=== PATIENT | female | born 1995 | race Caucasian/White ===

== ENCOUNTER 2020-06-14 07:50 | Outpatient (REF) | payer OTHER, SELFPAY ==
--- NOTE | 2020-06-14 12:39 | MHC.AU.P13 ---
Adult Audiological Evaluation Date of Visit: 06/14/20 Manager Bilingual Used: Not Applicable Reason for Appointment: Audiologic evaluation due to increasing hearing difficulties. Kristina was diagnosed with bilateral hearing loss at approximately the age of 3. Her current hearing aids are at least 10 years old and she needs new hearing aids. Previous Hearing Test Results: Andrew Rivas [facility] - Results are not available for review Ear History: Family History of Hearing Loss?: Yes: Grandmother Ear Infections in Childhood: Both Ears Medical History: Medical History: Headache and Tobacco Use Medication List: None Hearing Instrument History- Right Ear: Senior Engineering Associate: Oticon Model: Tego BTE Serial Number: [id number] Battery Size: 13 Dispensed By: Andrew Rivas Date of Fitting: Unknown Hearing Instrument History- Left Ear: Senior Engineering Associate: Oticon Model: Tego BTE Serial Number: [id number] Battery Size: 13 Dispensed By: Andrew Rivas Date of Fitting: Unknown Otoscopy: Right Ear: Unremarkable Left Ear: Unremarkable Tympanometry: Tympanometry performed due to: To assess integrity of the middle ear system Right Ear: Normal Middle Ear System (Type A) Left Ear: Normal Middle Ear System (Type A) Hearing Evaluation: Transducer(s) Used: Insert Earphones Bone Conduction Method: Conventional Audiometry Stimuli Used: Pure Tones Right Ear: Description of Hearing: Moderately-severe to severe sensorineural hearing loss Left Ear: Description of Hearing: Moderately-severe to severe sensorineural hearing loss Speech Recognition Threshold (SRT): Method Used: Monitored Live Voice Stimuli Used: Spondee Words Right Ear: 60 dB HL Left Ear: 60 dB HL Word Discrimination: Method: Recorded Lists Word Lists Used: NU-6 Right Ear: 64% at 90 dB HL 56% at 95 dB HL Left Ear: 68% at 90 dB HL 68% at 95 dB HL Most Comfortable Level (MCL): Right Ear: 90 dB HL Left Ear: 90 dB HL Comparison: Compared to the most recent evaluation: N/A Recommendations: Audiological re-evaluation in one year. Trial with amplification is recommended. Medical clearance from a physician is required before fitting. Patient plans to contact [facility]. - If eligible for [facility] ([facility]) services and/or would like to pursue hearing aids through [facility], Kristina is advised to schedule a Hearing Aid Fitting appointment. - If NOT eligible for [facility] services, recommend Kristina contact her medical insurance company to determine if she has a hearing aid benefit and proceed to obtain new hearing aids with a provider covered by her insurance. Diagnosis: Primary Diagnosis: H90.3 Bilateral Sensorineural Hearing Loss Services Performed: Comprehensive Audiological Evaluation (CPT 68783) Tympanometry (CPT 36328) Signature: Provider: Rhona Sherman, CCC-A
== END 2020-06-14 07:51 | disposition home or self-care (01) ==
LOC: HO.SH 07:50
PROVIDERS: PCP Nurse Practitioner Family; Visit Provider Nurse Practitioner Family
DX: H90.3 Sensorineural hearing loss, bilateral (principal)
CPT/HCPCS: 92557; 92567

== ENCOUNTER 2021-11-29 08:26 | Outpatient (REF) | payer SELFPAY ==
--- NOTE | 2021-11-29 09:01 | MHC.AU.HFU ---
Hearing Instrument Follow-Up- Binaural Date of Visit: 11/29/21 Right Ear: Protein Scientist: Oticon Model: Tego BTE Serial Number: [id number] Battery Size: 13 Dispensed By: Andrew Rivas Date of Fitting: Unknown Left Ear: Protein Scientist: Oticon Model: Tego BTE Serial Number: [id number] Battery Size: 13 Dispensed By: Andrew Rivas Date of Fitting: Unknown Follow-Up Summary: Patient brought in left aid with earhook broken. Repalced earhook and changed tubing with patient reporting good fit and sound quality. Patient will contact PCP to have order faxed for new hearing test and start process for new hearing aids. Diagnosis Code(s): Primary Diagnosis: H90.3 Bilateral Sensorineural Hearing Loss Services Performed: FRANCO Non-Quantity Charges: [facility] Charge ([id number]) Signature: Provider: Adela Sherman, MICHELLE-A
== END 2021-11-29 08:27 | disposition home or self-care (01) ==
LOC: HO.HAP 08:26
PROVIDERS: Visit Provider Nurse Practitioner Family
DX: Z46.1 Encounter for fitting and adjustment of hearing aid (principal); H90.3 Sensorineural hearing loss, bilateral
CPT/HCPCS: 99499

== ENCOUNTER 2021-12-22 12:58 | Outpatient (REF) | payer OTHER, SELFPAY | END 2021-12-22 12:59 | disposition home or self-care (01) | LOC: HO.SH 12:58 | PROVIDERS: Visit Provider Nurse Practitioner Family | DX: Z01.118 Encounter for examination of ears and hearing with other abnormal findings (principal); H90.3 Sensorineural hearing loss, bilateral | CPT/HCPCS: 92557 ==

== ENCOUNTER 2022-03-06 14:00 | Outpatient (REF) | payer SELFPAY ==
--- NOTE | 2022-03-06 16:45 | MHC.AU.HA1 ---
Hearing Aid Evaluation Date of Visit: 03/06/22 Historical Information:Description of Hearing: Moderately-severe to severe sensorineural hearing loss, bilaterally Current personal amplification information: Oticon Tego [id number] hearing aids purchased over 12 years ago Summary: Dagoberto hearing loss was diagnosed around [age] years old. She has reportedly been a consistent hearing aid user. She is ready to upgrade her hearing aid technology due to the age of her current pair. Kristina would prefer to stay with the same coverage specialist as well as the same style of hearing aid and ear mold. Hearing Aid Prescription: Based on the individual?s shared listening needs, communication environments, dexterity, desire for connectivity, and personal preferences, the following prescription for amplification has been made: Right ear: Make, Model, Color: Oticon Xceed 1 BTE SP Color: Velvet Black Battery Size: 13 Type of Earmold/Dome/CShell/SlimTip: Microsonic M45 Skeleton - Clear with multicolor glitter Left ear: Left ear prescription to be same as Right Hearing Aid above: Make, Model, Color: Oticon Xceed 1 BTE SP Color: Velvet Black Battery Size: 13 Type of Earmold/Dome/CShell/SlimTip: Microsonic M45 Skeleton - Clear with multicolor glitter Plan of Care: Patient wishes to purchase hearing aids as prescribed Action Taken/Action Needed: Earmold Impressions Taken. Medical Clearance to be requested from PCP/ENT Comments: [facility] Did not have a purchase order from [facility] for today's hearing aid consultation appointment. Called and left a voicemail for Daria Rivera at [facility]. Kristina opted to move forward with the appointment and knows if [facility] does not receive the purchase order from [facility], she is responsible for the $350.00 fee for today's appointment. A quote for hearing aids and ear molds will be sent to [facility], pending medical clearance. All materials will be order after receiving approval for the new hearing aids and ear molds from [facility]. Primary Diagnosis: H90.3 Bilateral Sensorineural Hearing Loss Signature: Provider: Juana Sosa, [facility]
--- NOTE | 2022-03-06 16:46 | MHC.AU.MED ---
Medical Clearance for Hearing Instrumentation Date: 03/06/22 Patient Name: Kristina Cash Date of : 1995 Primary Care Provider: ARTHUR Frazier We have seen your patient on 03/06/22 and have determined that they are a candidate for amplification (See accompanying report). Specifically, they would benefit from: Hearing aid use in both ears There is a statute that addresses Medical Evaluation Requirements prior to fitting a patient with a hearing aid. According to [place] statute 265 CMR:6.03(1), (a) General. Except as provided in 265 CMR 6.03(1)(b), a profiler shall not sell a hearing aid unless the prospective user has presented to the profiler a written statement signed by a licensed physician that states that the patient's hearing loss has been medically evaluated and the patient may be considered a candidate for a hearing aid. The medical evaluation must have taken place within the preceding six months. Please note: Due to the [place] Statute referenced above, we cannot accept a signature other than that of a licensed physician. MANUFACTURING PRODUCTION TECHNICIAN and PA signatures cannot be accepted. I am in agreement with the above recommendation. There is no medical contraindication for hearing instrumentation. Physician Signature Date Physician Name (Printed)
== END 2022-03-06 14:01 | disposition home or self-care (01) ==
LOC: HO.HAP 14:00
PROVIDERS: Visit Provider Nurse Practitioner Family
DX: Z46.1 Encounter for fitting and adjustment of hearing aid (principal); H90.3 Sensorineural hearing loss, bilateral
CPT/HCPCS: 92590

== ENCOUNTER 2022-06-07 14:06 | Outpatient (REF) | payer SELFPAY ==
--- NOTE | 2022-06-07 15:57 | MHC.AU.HA3 ---
Hearing Instrument Follow-Up- Binaural Date of Visit: 06/07/22 Right Ear: Make, Model, Color, Serial Number: Oticon Xceed 2 BTE UP SN: [id number] Color: Velvet Black Inspector Assembly Repair Warranty: 06/15/2025 Inspector Assembly Loss and Damage Warranty: 06/15/2025 [facility] Service Plan: 06/03/2023 Battery Size: 675 Earmold/Dome/CShell/SlimTip:Microsonic M45 Skeleton - Clear with multicolor glitter, small vent Dispensed By: [facility] Date of Fittin06/02/2022 Left Ear: Make, Model, Color, Serial Number: Oticon Xceed 2 BTE UP SN: [id number] Color: Velvet Black Inspector Assembly Repair Warranty: 06/15/2025 Inspector Assembly Loss and Damage Warranty: 06/15/2025 [facility] Service Plan: 06/02/2022 Battery Size: 675 Earmold/Dome/CShell/SlimTip: Microsonic M45 Skeleton - Clear with multicolor glitter, small vent Dispensed By: [facility] Date of Fittin06/02/2022 Follow-Up Summary: Kristina reported that overall the new hearing aids have been great. She notices a significant improvement in her overall hearing compared to her old hearing aids. However, she has been experiencing significant discomfort from the left ear mold in the helix region. Otoscopy showed redness with a sore developing in that area. Able to take a new impression of the left ear without incident for a remake. Sent to [facility]. Right ear mold has been comfortable with no issues at this time. Cut left ear mold into a canal lock style mold. Kristina reported that it was comfortable and no feedback noted in office. Advised if issues with retention arise, use old ear mold in the meantime. Recommendations: Follow up appointment on 06/16/2022 cancelled as new mold will not be in at that time. Kristina will be contacted when new ear mold has arrived to reschedule follow up and ear mold lease picker. Diagnosis Code(s): Primary Diagnosis: H90.3 Bilateral Sensorineural Hearing Loss Signature: Provider: Juana Sosa, [facility]
== END 2022-06-07 14:07 | disposition home or self-care (01) ==
LOC: HO.HAP 14:06
PROVIDERS: Visit Provider Nurse Practitioner Family
DX: Z13.89 Encounter for screening for other disorder (principal)

== ENCOUNTER 2022-06-14 13:49 | Outpatient (REF) | payer SELFPAY ==
--- NOTE | 2022-06-14 16:18 | MHC.AU.HA3 ---
Hearing Instrument Follow-Up- Binaural Date of Visit: 06/14/22 Right Ear: Make, Model, Color, Serial Number: Oticon Xceed 2 BTE UP SN: [id number] Color: Velvet Black Rapier Insertion Loom Fixer Repair Warranty: 06/15/2025 Rapier Insertion Loom Fixer Loss and Damage Warranty: 06/15/2025 [facility] Service Plan: 06/03/2023 Battery Size: 675 Earmold/Dome/CShell/SlimTip:Microsonic M45 Skeleton - Clear with multicolor glitter, small vent Dispensed By: [facility] Date of Fittin06/02/2022 Left Ear: Make, Model, Color, Serial Number: Oticon Xceed 2 BTE UP SN: [id number] Color: Velvet Black Rapier Insertion Loom Fixer Repair Warranty: 06/15/2025 Rapier Insertion Loom Fixer Loss and Damage Warranty: 06/15/2025 [facility] Service Plan: 06/03/2023 Battery Size: 675 Earmold/Dome/CShell/SlimTip: Microsonic M45 Skeleton - Clear with multicolor glitter, small vent Dispensed By: [facility] Date of Fittin06/02/2022 Follow-Up Summary: rKistina reported that now the right ear mold is causing discomfort as well. Otoscopy revealed a sore developing in region marked on attached picture sent to [facility]. Impression taken of right ear without incident. Sent to [facility] for remake. Cut right ear mold into a canal lock style mold (similar to left ear mold). Kristina reported that since cutting the left ear mold she has had no issues with comfort or retention. Recommendations: Patient will be contacted when materials have arrived. Recommendations (Other): Make sure both earmolds have arrived before scheduling appointment for warehouse picker (one was ordered on 06/07/21, other was ordered on 06/14/22) Diagnosis Code(s): Primary Diagnosis: H90.3 Bilateral Sensorineural Hearing Loss Signature: Provider: Juana Sosa, [facility]
== END 2022-06-14 13:50 | disposition home or self-care (01) ==
LOC: HO.HAP 13:49
PROVIDERS: Visit Provider Nurse Practitioner Family
DX: Z13.89 Encounter for screening for other disorder (principal)

== ENCOUNTER 2022-10-10 11:21 | Outpatient (REF) | payer SELFPAY ==
--- NOTE | 2022-10-10 11:49 | MHC.AU.HA3 ---
Hearing Instrument Follow-Up- Binaural Date of Visit: 10/10/22 Right Ear: Make, Model, Color, Serial Number: Oticon Xceed 2 BTE UP SN: [id number] Color: Velvet Black Box Tender Repair Warranty: 06/15/2025 Box Tender Loss and Damage Warranty: 06/15/2025 [facility] Service Plan: 06/03/2023 Battery Size: 675 Earmold/Dome/CShell/SlimTip:Microsonic M45 Skeleton - Clear with multicolor glitter, small vent Dispensed By: [facility] Date of Fittin06/02/2022 Left Ear: Make, Model, Color, Serial Number: Oticon Xceed 2 BTE UP SN: [id number] Color: Velvet Black Box Tender Repair Warranty: 06/15/2025 Box Tender Loss and Damage Warranty: 06/15/2025 [facility] Service Plan: 06/03/2023 Battery Size: 675 Earmold/Dome/CShell/SlimTip: Microsonic M45 Skeleton - Clear with multicolor glitter, small vent Dispensed By: [facility] Date of Fittin06/02/2022 Follow-Up Summary: Fit remade skeleton earmolds. Cleaned and retubed old ear molds (skeletons that were cut into canal locks due to discomfort in helix region) to have as back up. Comfortable and no feedback in office. Recommendations: [facility] will call if issues with comfort arise. Cleaning/tubing change scheduled 03/13/2023 at [facility]'s request. Diagnosis Code(s): Primary Diagnosis: H90.3 Bilateral Sensorineural Hearing Loss Signature: Provider: Juana Sosa, [facility]
== END 2022-10-10 11:22 | disposition home or self-care (01) ==
LOC: HO.HAP 11:21
PROVIDERS: Visit Provider Nurse Practitioner Family
DX: Z46.1 Encounter for fitting and adjustment of hearing aid (principal); H90.3 Sensorineural hearing loss, bilateral
CPT/HCPCS: V5266

== ENCOUNTER 2023-02-09 13:42 | Outpatient (REF) | payer SELFPAY | END 2023-02-09 13:43 | disposition home or self-care (01) | LOC: HO.HAP 13:42 | PROVIDERS: Visit Provider Nurse Practitioner Family | DX: Z46.1 Encounter for fitting and adjustment of hearing aid (principal); H90.3 Sensorineural hearing loss, bilateral | CPT/HCPCS: V5266 ==

== ENCOUNTER 2023-03-13 07:55 | Outpatient (REF) | payer SELFPAY | END 2023-03-13 07:56 | disposition home or self-care (01) | LOC: HO.HAP 07:55 | PROVIDERS: Visit Provider Nurse Practitioner Family | DX: Z13.89 Encounter for screening for other disorder (principal) ==

== ENCOUNTER 2023-06-13 08:22 | Outpatient (REF) | payer SELFPAY | END 2023-06-13 08:23 | disposition home or self-care (01) | LOC: HO.HAP 08:22 | PROVIDERS: Visit Provider Nurse Practitioner Family | DX: Z13.89 Encounter for screening for other disorder (principal) ==

== ENCOUNTER 2024-01-04 13:21 | Outpatient (REF) | payer SELFPAY | END 2024-01-04 13:22 | disposition home or self-care (01) | LOC: HO.HAP 13:21 | PROVIDERS: Visit Provider Nurse Practitioner Family | DX: Z46.1 Encounter for fitting and adjustment of hearing aid (principal); H90.3 Sensorineural hearing loss, bilateral | CPT/HCPCS: 92593; V5266 ==

== ENCOUNTER 2024-07-02 10:33 | Outpatient (REF) | payer SELFPAY ==
--- OUTSIDE RECORDS SUMMARY | 2024-07-02 12:04 | XMS_ITS | Clinical Summary ---
Author Organization [facility] it Address [address] [place] [address] Care Team Providers Care Sales Director Name Role Phone Unavailable Primary Care Provider Unavailabl e Social History Tobacco Use Types Packs/Day Years Used Date Smoking Tobacco: Never Assessed Comments Unknown Sex and Gender Information Value Date Recorded Sex Assigned at Not on file Legal Sex Female 8:26 PM EST Gender Identity Not on file Sexual Orientation Not on file Plan of Treatment Health Maintenance Due Date Last Done Comments DTaP,Tdap,and Td Vaccines (1 - Tdap) 2013 Hepatitis B Vaccines (1 of 3 - 19+ 3-dose series) 2013 Cervical Cancer Screening: P ap Smear 2015 Depression Screening 04/20/2023 HIV Screening 04/20/2023 Hepatitis C Screening 04/20/2023 Social Influencers of Health Screening 04/20/2023 COVID-19 Vaccine ( - 2023-2 5 season) 2023 Influenza Vaccine (#1) 2023 HIB Vaccines Aged Out No longer eligi ble based on patient's age to complete this topic HPV Vaccines Aged Out No longer eligi ble based on patient's age to complete this topic Hepatitis A Vaccines Aged Out No long er eligible based on patient's age to complete this topic IPV Vaccines Aged Out No longer eligi ble based on patient's age to complete this topic MMR Vaccines Aged Out No longer eligi ble based on patient's age to complete this topic Meningococcal ACWY Vaccine Aged Out N o longer eligible based on patient's age to complete this topic Meningococcal B Vaccine Aged Out No l onger eligible based on patient's age to complete this topic Pneumococcal Vaccine: Pediat rics (0 to 5 Years) and At-Risk Patients (6 to 64 Years) Aged Out No longer eligible b ased on patient's age to complete this topic RSV Immunization Patients Un andreas 20 months Aged Out No longer eligible b ased on patient's age to complete this topic Varicella Vaccines Aged Out No longer eligible based on patient's age to complete this topic
--- OUTSIDE RECORDS SUMMARY | 2024-07-02 12:04 | XMS_ITS | Clinical Summary ---
Author Organization [facility] Address [address] [place], [place] [id number] Phone Care Team Providers Care Mechanic Name Role Phone Unavailable Primary Care Provider Unavailabl e Immunizations Immunization Administration Dates Next Due DTaP 12/01/1998, 6,1994, 995,1994 HPV, Quadrivalent 10/16/2007,06/04/2007,04/02/19 08 Hep B, ped/adol 1994,1994,1994 Hib (PRP-T) 06/06/1995, 5,1994, 995 Influenza 04/30/2008,02/01/2007 MMR 08/26/1999,06/06/1995 Meningococcal Conj (Menactra) MCV4P 03/30/2006 OPV 12/01/1998, 5,1994, 995 Tdap 03/30/2006 Varicella 04/02/2007,08/22/1995 Social History Tobacco Use Types Packs/Day Years Used Date Smoking Tobacco: Never Assessed Comments Unknown Sex and Gender Information Value Date Recorded Sex Assigned at Not on file Legal Sex Female 5:12 PM EST Gender Identity Not on file Sexual Orientation Not on file Last Filed Vital Signs Vital Sign Reading Time Taken Comments Blood Pressure 105/60 06/21/2012 12:00 AM EDT Pulse 88 06/21/2012 12:00 AM EDT Temperature 36.4 ??C (97.6 ??F) 08/01/2013 12:00 AM E DT Respiratory Rate - - Oxygen Saturation 95% 06/01/2011 12:00 AM EST Inhaled Oxygen Concentration - - Weight 67.8 kg (149 lb 6.5 oz) 08/01/2013 12:00 AM EDT Height 161.3 cm (5' 3.5 ) 06/21/2012 12:00 AM ED T Body Mass Index 26.05 06/21/2012 12:00 AM EDT Plan of Treatment Health Maintenance Due Date Last Done Comments DTaP,Tdap,and Td Vaccines (7 - Td or Tdap) 03/30/2016 03/30/2006, 12/01/1998, 08/22/1995, Additional history exists Influenza Vaccines (#1) 2023 04/30/2008, 02/01 COVID-19 Vaccine ( season) 2023 Hepatitis B Vaccines Completed 1995, 1995, 1994 HIB Vaccines Completed 06/06/1995, 11/1994, 1994, Additional history exists IPV Vaccines Completed 12/01/1998, 11/1994, 1994, Additional history exists MMR Vaccines Completed 08/26/1999, 06/06/1995 Meningococcal Vaccine Aged Out 03/30/2006 No mendel doreen eligible based on patient's age to complete this topic Varicella Vaccines Completed 04/02/2007, 08/22/1995 HPV Vaccines Completed 10/16/2007, 05/24, 04/02/2007 Hepatitis A Vaccines Aged Out No long er eligible based on patient's age to complete this topic Men B Vaccine Aged Out No longer elig ible based on patient's age to complete this topic Pneumococcal Vaccine Aged Out No long er eligible based on patient's age to complete this topic Procedures * Due to [place] mmCHANNEL law, this organization might not be sharing sensitive test results. Procedure Name Priority Date/Time Associated Diagnosis Comments CHLAMYDIALGONORRHOEAL DETECTION BY PCR Routine 04/24/2016 12:00 AM EST from Last 3 Months or Most Recently Relevant to Health Maintenance Results * Due to [place] mmCHANNEL law, this organization might not be sharing sensitive test results. * CHLAMYDIALGONORRHOEAL DETECTION BY PCR (04/24/2016 12:00 AM EST) CHLAMYDIA PCR DETECTED [facility] Comment: Christi Rankin 04/24/2016 02:56:43 PM > No longer our pt - ??pls notify lab as this should go to new primary care provider. To Carey Moody ??04/25/2016 10:54:18 AM > To Angie for processing. Francis Damon ??04/26/2016 11:27:48 AM > notified [facility] Positive chlamydia, ordered by ceramic engineering professor Reason: Received -[facility] Lab Order Truck Switcher GC PCR Not Detected [facility] Comment: Christi Rankin 04/24/2016 02:56:43 PM > No longer our pt - ??pls notify lab as this should go to new primary care provider. To Carey Moody ??04/25/2016 10:54:18 AM > To Angie for processing. Francis Damon ??04/26/2016 11:27:48 AM > notified [facility] Positive chlamydia, ordered by ceramic engineering professor Reason: Received -[facility] Lab Order Truck Switcher 04/24/2016 Narrative CONVERTED LABS - 04/24/2016 12:00 AM EST Chlamydial/Gonorrhoeal Detection by PCR us John Rockwell MD EXTERNAL RESULTS CONSOLE [facility] walls Result CONVERTED LAB[facility] from Last 3 Months or Most Recently Relevant to Health Maintenance
--- OUTSIDE RECORDS SUMMARY | 2024-07-02 12:04 | XMS_ITS | Encounter Summary ---
Author Organization [facility] Address [address] [place], [place] [address] Phone Care Team Providers Care Rn Perinatal Name Role Phone Maricruz White NP Primary Care Provider Encounter Details Date Type Department Care Team (Late st Contact Info) Description 11/01/2016 Conversion Encounter [facility] - [address], [address] [place] [address] Maricruz White NP [address] [place] [address] Social History Tobacco Use Types Packs/Day Years Used Date Smoking Tobacco: Never Assessed Comments Unknown Sex and Gender Information Value Date Recorded Sex Assigned at Not on file Legal Sex Female 5:12 PM EST Gender Identity Not on file Sexual Orientation Not on file documented as of this encounter Plan of Treatment Not on file documented as of this encounter Visit Diagnoses Not on filedocumented in this encounter Care Teams Rn Perinatal Relationship Specialty Start Date End Date Maricruz White NP [address] [place] [address] PCP - General 05/16/16 10/05/20 documented as of this encounter
--- NOTE | 2024-07-02 12:34 | MHC.AU.HA3 ---
Hearing Instrument Follow-Up- Binaural Date of Visit: 07/02/24 Right Ear: Make, Model, Color, Serial Number: Oticon Xceed 2 BTE UP SN: [id number] Color: Velvet Black Drill Grinder Repair Warranty: 06/15/2025 Drill Grinder Loss and Damage Warranty: 06/15/2025 [facility] Service Plan: 06/03/2023 Battery Size: 675 Earmold/Dome/CShell/SlimTip:Microsonic M45 Skeleton - Clear with multicolor glitter, small vent Dispensed By: [facility] Date of Fittin06/02/2022 Left Ear: Make, Model, Color, Serial Number: Oticon Xceed 2 BTE UP SN: [id number] Color: Velvet Black Drill Grinder Repair Warranty: 06/15/2025 Drill Grinder Loss and Damage Warranty: 06/15/2025 [facility] Service Plan: 06/03/2023 Battery Size: 675 Earmold/Dome/CShell/SlimTip: Microsonic M45 Skeleton - Clear with multicolor glitter, small vent Dispensed By: [facility] Date of Fittin06/02/2022 Follow-Up Summary: Seen for FRANCO maintenance. Found tubes hard. Found earmolds on wrong aids. Cleaned aids and earmolds, retubed, listening check positive. Advised of earmold mix up. Recommendations: Recommendations: Hearing instrument follow-up or maintenance as needed. Diagnosis Code(s): Primary Diagnosis: H90.3 Bilateral Sensorineural Hearing Loss Signature: Provider: Juana Basurto, [facility]
== END 2024-07-02 10:34 | disposition home or self-care (01) ==
LOC: HO.HAP 10:33
PROVIDERS: Visit Provider Nurse Practitioner Family
DX: Z46.1 Encounter for fitting and adjustment of hearing aid (principal); H90.3 Sensorineural hearing loss, bilateral
CPT/HCPCS: 92593; V5266